=== PATIENT | male | born 1985 | race Caucasian/White ===

== ENCOUNTER 2018-08-06 10:10 | Emergency (ER) | payer OTHER ==
[~2018-08-06] VITALS: Ht 182.9 cm; Wt 79.5 kg
[2018-08-06] MEDS ORDERED: LORazepam 2 MG/ML, 1ML IVPush ONE (11:30)
[2018-08-06] MEDS ORDERED: PANTOPRAZOLE 40 MG IV IVP ONE (11:30)
[2018-08-06] MEDS ORDERED: SODIUM CHLORIDE 0.9% 1,000ML IVBOLUS ONE (11:30)
[2018-08-06 11:36] LABS: BASOPHILS # (AUTO) 0.02 x10^3/uL (0-0.1); BASOPHILS % (AUTO) 0 % (0-1); EOSINOPHILS # (AUTO) 0.02 x10^3/uL (0-0.4); EOSINOPHILS % (AUTO) 0 % (1-7); LYMPHOCYTES # (AUTO) 1.45 x10^3/uL (1-3.4); LYMPHOCYTES % (AUTO) 23 % (22-44); MD NO; MEAN CORPUSCULAR HEMOGLOBIN 31.9 pg (27.5-34.5); MEAN CORPUSCULAR HGB CONC 34.2 g/dL (33.2-36.2); MEAN CORPUSCULAR VOLUME 93.3 fL (81-97); MEAN PLATELET VOLUME 7.3 fL (7.4-10.4); MONOCYTES # (AUTO) 0.38 x10^3/uL (0.2-0.8); MONOCYTES % (AUTO) 6 % (2-9); NEUTROPHILS # (AUTO) 4.54 x10^3/uL (1.8-6.8); NEUTROPHILS % (AUTO) 71 % (42-75); PLATELET COUNT 243 x10^3/uL (130-400); RED BLOOD COUNT 5.26 x10^6/uL (4.38-5.82); RED CELL DISTRIBUTION WIDTH 13.5 % (9.4-14.8)
[2018-08-06] MEDS ORDERED: LORazepam 2 MG/ML, 1ML ONE (11:45)
[2018-08-06] MEDS ORDERED: PANTOPRAZOLE 40 MG IV ONE (11:46)
[2018-08-06 11:48] LABS: ANION GAP 18 mmol/L (5-15); CALCIUM 9.4 mg/dL (8.5-10.1); CHLORIDE 99 mmol/L (98-107)
[2018-08-06 11:51] LABS: ALANINE AMINOTRANSFERASE 144 U/L (12-78); ALKALINE PHOSPHATASE 80 U/L (45-117); BILIRUBIN,TOTAL 0.3 mg/dL (0.2-1.0); TOTAL PROTEIN 8.2 g/dL (6.4-8.2)
[2018-08-06 12:44] LABS: MICROSCOPIC AUTO
[2018-08-06 12:50] LABS: CULTURE INDICATED? NO
[2018-08-06] MEDS ORDERED: metFORMIN 500 MG TABLET PO ONE (13:00)
[2018-08-06] MEDS ORDERED: CHLORDIAZEPOXIDE 25 MG CAPSULE PO ONE (13:30)
[2018-08-06] MEDS ORDERED: CHLORDIAZEPOXIDE 25 MG CAPSULE ONE (13:37)
[2018-08-06 14:19] VITALS: BP 132/61
== END 2018-08-06 14:21 | disposition home or self-care (01) ==
LOC: ED 11:52
DX: F10.239 Alcohol dependence with withdrawal, unspecified (principal); E11.65 Type 2 diabetes mellitus with hyperglycemia
CPT/HCPCS: 36415; 80053; 81001; 82962; 83690; 85025; 96361; 96374; 96375; 99284; C9113; J2060; J7030

== ENCOUNTER 2019-01-05 05:46 | Inpatient (IN) | payer OTHER ==
[~2019-01-05] VITALS: Ht 182.9 cm; Wt 76.8 kg
[~2019-01-05 05:46] MED LIST: METF500S5 PO
[2019-01-05] MEDS ORDERED: PLEASE ENTER HEIGHT AND WEIGHT MC SCH (10:00)
[2019-01-05 10:46] LABS: ALANINE AMINOTRANSFERASE 234 U/L (12-78); ALBUMIN 3.9 g/dL (3.4-5.0); ANION GAP 15 mmol/L (5-15); CALCIUM 8.7 mg/dL (8.5-10.1); CHLORIDE 106 mmol/L (98-107); CREATININE 0.93 mg/dL (0.7-1.3)
[2019-01-05] MEDS: HYDROmorphone 2 MG/ML, 1ML IVPush PRN ×4 (10:47→21:10)
[2019-01-05] MEDS: LORazepam 2 MG/ML, 1ML IVPush PRN ×3 (10:47→19:15)
[2019-01-05] MEDS: SODIUM CHLORIDE 0.9% 1,000 ML IV SCH ×3 (10:48→21:10)
[2019-01-05 10:51] LABS: ALKALINE PHOSPHATASE 86 U/L (45-117); BILIRUBIN,TOTAL 0.9 mg/dL (0.2-1.0); CHOL/HDL RATIO 2.9; CHOLESTEROL, TOTAL 252 mg/dL (140-239); HDL CHOL % 34 % (26-37); HDL CHOLESTEROL (DIRECT) 86 mg/dL (40-60); LDL CHOLESTEROL,CALCULATED 139 mg/dL (54-169); LDL/HDL RATIO 1.6 (0.5-3.0); TOTAL PROTEIN 7.4 g/dL (6.4-8.2); TRIGLYCERIDES 134 mg/dL (50-200); VLDL CHOLESTEROL 27 mg/dL (0-25)
[2019-01-05] MEDS ORDERED: INSULIN LISPRO 100 UNITS/ML, PEN SQ-INSULIN SCH (11:00)
[2019-01-05 11:39] LABS: BASOPHILS # (AUTO) 0.02 x10^3/uL (0-0.1); BASOPHILS % (AUTO) 0 % (0-1); EOSINOPHILS % (AUTO) 0 % (1-7); LYMPHOCYTES # (AUTO) 0.65 x10^3/uL (1-3.4); LYMPHOCYTES % (AUTO) 6 % (22-44); MD NO; MEAN CORPUSCULAR HEMOGLOBIN 32.7 pg (27.5-34.5); MEAN CORPUSCULAR HGB CONC 34.3 g/dL (33.2-36.2); MEAN CORPUSCULAR VOLUME 95.6 fL (81-97); MEAN PLATELET VOLUME 7.2 fL (7.4-10.4); MONOCYTES # (AUTO) 1.21 x10^3/uL (0.2-0.8); MONOCYTES % (AUTO) 10 % (2-9); NEUTROPHILS # (AUTO) 9.92 x10^3/uL (1.8-6.8); NEUTROPHILS % (AUTO) 84 % (42-75); PLATELET COUNT 178 x10^3/uL (130-400); RED BLOOD COUNT 4.24 x10^6/uL (4.38-5.82); RED CELL DISTRIBUTION WIDTH 12.1 % (9.4-14.8)
[2019-01-05] MEDS ORDERED: ENALAPRILAT 1.25 MG/ML, 2ML IVPush PRN (12:00)
[2019-01-05] MEDS ORDERED: LABETALOL 5MG/ML, 20ML IVPush PRN (12:00)
[2019-01-05] MEDS ORDERED: POLYETHYLENE GLYCOL 17 GM PACKET PO PRN (12:00)
[2019-01-05] MEDS ORDERED: CHLORDIAZEPOXIDE 25 MG CAPSULE PO SCH (12:00)
[2019-01-05] MEDS ORDERED: DOCUSATE 100 MG CAPSULE PO PRN (12:00)
[2019-01-05] MEDS ORDERED: SODIUM PHOSPHATE 20 MMOL in SODIUM CHLORIDE 0.9% 500 ML IV ONE (12:30)
[2019-01-05] MEDS ORDERED: FLUO20CA19 PO (12:44)
[2019-01-05] MEDS ORDERED: GLIP5TAB10 PO (12:44)
[2019-01-05] MEDS: ENOXAPARIN 40 MG/0.4 ML SQ SCH (12:59)
[2019-01-05] MEDS: ONDANSETRON 2MG/ML, 2ML IVPush PRN (15:58)
[2019-01-05] MEDS: INSULIN LISPRO 100 UNITS/ML, PEN SQ-INSULIN SCH ×3 (16:20→23:12)
[2019-01-05] MEDS: CHLORDIAZEPOXIDE 25 MG CAPSULE PO SCH (19:15)
[2019-01-06] MEDS: ONDANSETRON 2MG/ML, 2ML IVPush PRN ×3 (00:33→14:01)
[2019-01-06] MEDS: HYDROmorphone 2 MG/ML, 1ML IVPush PRN ×3 (00:33→06:14)
[2019-01-06] MEDS: CHLORDIAZEPOXIDE 25 MG CAPSULE PO SCH ×4 (01:43→20:54)
[2019-01-06] MEDS: LORazepam 2 MG/ML, 1ML IVPush PRN ×3 (01:43→19:28)
[2019-01-06] MEDS: SODIUM CHLORIDE 0.9% 1,000 ML IV SCH ×3 (01:44→13:09)
[2019-01-06 04:00] VITALS: BP 148/91
[2019-01-06] MEDS: INSULIN LISPRO 100 UNITS/ML, PEN SQ-INSULIN SCH ×5 (04:27→20:53)
[2019-01-06 04:46] LABS: BASOPHILS # (AUTO) 0.04 x10^3/uL (0-0.1); BASOPHILS % (AUTO) 0 % (0-1); EOSINOPHILS # (AUTO) 0.03 x10^3/uL (0-0.4); EOSINOPHILS % (AUTO) 0 % (1-7); LYMPHOCYTES # (AUTO) 1.24 x10^3/uL (1-3.4); LYMPHOCYTES % (AUTO) 13 % (22-44); MD NO; MEAN CORPUSCULAR HEMOGLOBIN 31.7 pg (27.5-34.5); MEAN CORPUSCULAR HGB CONC 33.2 g/dL (33.2-36.2); MEAN CORPUSCULAR VOLUME 95.6 fL (81-97); MEAN PLATELET VOLUME 7.5 fL (7.4-10.4); MONOCYTES # (AUTO) 0.86 x10^3/uL (0.2-0.8); MONOCYTES % (AUTO) 9 % (2-9); NEUTROPHILS # (AUTO) 7.16 x10^3/uL (1.8-6.8); NEUTROPHILS % (AUTO) 77 % (42-75); PLATELET COUNT 134 x10^3/uL (130-400); RED BLOOD COUNT 4.05 x10^6/uL (4.38-5.82); RED CELL DISTRIBUTION WIDTH 12.1 % (9.4-14.8)
[2019-01-06 04:58] LABS: ALBUMIN 3.3 g/dL (3.4-5.0); ANION GAP 15 mmol/L (5-15); CALCIUM 7.9 mg/dL (8.5-10.1); CHLORIDE 102 mmol/L (98-107)
[2019-01-06 05:02] LABS: ALANINE AMINOTRANSFERASE 160 U/L (12-78); ALKALINE PHOSPHATASE 71 U/L (45-117); BILIRUBIN,TOTAL 0.9 mg/dL (0.2-1.0); CREATININE 0.76 mg/dL (0.7-1.3); TOTAL PROTEIN 6.3 g/dL (6.4-8.2)
[2019-01-06] MEDS ORDERED: SODIUM PHOSPHATE 20 MMOL in SODIUM CHLORIDE 0.9% 500 ML IV ONE (06:30)
[2019-01-06] MEDS: INSULIN GLARGINE 100 UNITS/ML, PEN SQ-INSULIN SCH ×2 (08:48→20:54)
[2019-01-06] MEDS: OXYcodone IR 5MG TABLET PO PRN ×4 (10:06→23:41)
[2019-01-06] MEDS: ENOXAPARIN 40 MG/0.4 ML SQ SCH (13:09)
[2019-01-06] MEDS: THIAMINE 200 MG in SODIUM CHLORIDE 0.9% 50 ML IV SCH (13:09)
[2019-01-06 14:33] VITALS: BP 144/94
[2019-01-06 19:12] VITALS: BP 143/91
[2019-01-07 01:00] VITALS: BP_SYST 145; BP_SYST 147; BP_DIAS 101; BP_DIAS 103
[2019-01-07] MEDS: SODIUM CHLORIDE 0.9% 1,000 ML IV SCH (02:29)
[2019-01-07 02:30] VITALS: BP 136/90
[2019-01-07] MEDS: LORazepam 2 MG/ML, 1ML IVPush PRN (02:33)
[2019-01-07 05:45] LABS: ANION GAP 11 mmol/L (5-15); CALCIUM 8.6 mg/dL (8.5-10.1); CHLORIDE 99 mmol/L (98-107); CREATININE 0.49 mg/dL (0.7-1.3)
[2019-01-07 07:36] VITALS: BP 135/95
[2019-01-07] MEDS: INSULIN LISPRO 100 UNITS/ML, PEN SQ-INSULIN SCH ×2 (07:46→11:57)
[2019-01-07] MEDS: INSULIN GLARGINE 100 UNITS/ML, PEN SQ-INSULIN SCH (07:46)
[2019-01-07] MEDS ORDERED: POTASSIUM CHLORIDE 20 MEQ TAB.ER.PRT PO SCH (08:00)
[2019-01-07] MEDS: CHLORDIAZEPOXIDE 25 MG CAPSULE PO SCH (09:18)
[2019-01-07] MEDS: THIAMINE 200 MG in SODIUM CHLORIDE 0.9% 50 ML IV SCH (11:56)
[2019-01-07 14:06] VITALS: BP 132/89
== END 2019-01-07 14:00 | disposition left against medical advice (07) | DRG 432 ==
LOC: CCU 09:29 → 4NOR 01-06 09:46
PROVIDERS: ADMIT Family Medicine; ATTEND Family Medicine
DX: K70.10 Alcoholic hepatitis without ascites (principal); E11.10 Type 2 diabetes mellitus with ketoacidosis without coma; K85.90 Acute pancreatitis without necrosis or infection, unspecified; F10.231 Alcohol dependence with withdrawal delirium; R65.10 Systemic inflammatory response syndrome (SIRS) of non-infectious origin without acute organ dysfunction; E83.39 Other disorders of phosphorus metabolism; I10 Essential (primary) hypertension; Z53.21 Procedure and treatment not carried out due to patient leaving prior to being seen by health care provider; F32.9 Major depressive disorder, single episode, unspecified; F41.9 Anxiety disorder, unspecified; N20.0 Calculus of kidney; Z80.6 Family history of leukemia; Z87.442 Personal history of urinary calculi; Z87.891 Personal history of nicotine dependence
CPT/HCPCS: 36415; 80048; 80053; 80061; 82962; 83605; 83690; 83735; 84100; 84443; 85025; 87081; G0378; J1170; J1650; J2405; J3411; J1815; J2060; J7030; J7040

== ENCOUNTER 2019-01-17 18:36 | Emergency (ER) | payer OTHER ==
[~2019-01-17] VITALS: Ht 182.9 cm; Wt 75.7 kg
[~2019-01-17 18:36] MED LIST changes: +FLUO20CA19 PO; +GLIP5TAB10 PO
[2019-01-17 19:24] LABS: BASOPHILS # (AUTO) 0.04 x10^3/uL (0-0.1); BASOPHILS % (AUTO) 1 % (0-1); EOSINOPHILS # (AUTO) 0.09 x10^3/uL (0-0.4); EOSINOPHILS % (AUTO) 1 % (1-7); LYMPHOCYTES # (AUTO) 2.82 x10^3/uL (1-3.4); LYMPHOCYTES % (AUTO) 34 % (22-44); MD NO; MEAN CORPUSCULAR HEMOGLOBIN 32.7 pg (27.5-34.5); MEAN CORPUSCULAR HGB CONC 34.8 g/dL (33.2-36.2); MEAN PLATELET VOLUME 7.4 fL (7.4-10.4); MONOCYTES # (AUTO) 0.49 x10^3/uL (0.2-0.8); MONOCYTES % (AUTO) 6 % (2-9); NEUTROPHILS # (AUTO) 4.97 x10^3/uL (1.8-6.8); NEUTROPHILS % (AUTO) 59 % (42-75); PLATELET COUNT 366 x10^3/uL (130-400); RED CELL DISTRIBUTION WIDTH 12.3 % (9.4-14.8)
[2019-01-17 19:26] LABS: MICROSCOPIC NOT IND
[2019-01-17 19:28] LABS: CULTURE INDICATED? NO
[2019-01-17 19:31] LABS: ALBUMIN 3.8 g/dL (3.4-5.0); ANION GAP 15 mmol/L (5-15); CALCIUM 9.3 mg/dL (8.5-10.1); CHLORIDE 100 mmol/L (98-107)
[2019-01-17 19:34] LABS: ALANINE AMINOTRANSFERASE 140 U/L (12-78); ALKALINE PHOSPHATASE 84 U/L (45-117); BILIRUBIN,TOTAL 0.3 mg/dL (0.2-1.0); CREATININE 0.63 mg/dL (0.7-1.3); TOTAL PROTEIN 7.6 g/dL (6.4-8.2)
[2019-01-17 19:52] LABS: ACETONE, SERUM Moderate(40mg/dL) mg/dL (Negative)
[2019-01-17] MEDS ORDERED: THIAMINE 100MG TABLET PO ONE (20:00)
[2019-01-17] MEDS ORDERED: ONDANSETRON ODT 4 MG PO ONE (20:00)
[2019-01-17] MEDS ORDERED: D5%-0.45% NACL 1,000 ML IV SCH (20:00)
[2019-01-17] MEDS ORDERED: THIAMINE 200 MG in SODIUM CHLORIDE 0.9% 50 ML IV ONE (20:00)
--- NOTE | 2019-01-17 20:00 | NUR ---
PT REPORTS FEELING SHAKY WILL DISCUSS MEDICATION FOR WITHDRAWL WITH
[2019-01-17] MEDS ORDERED: LORazepam 2 MG/ML, 1ML ONE (20:12)
[2019-01-17] MEDS ORDERED: ONDANSETRON ODT 4 MG ONE (20:15)
[2019-01-17 20:27] LABS: PH, VENOUS 7.361 pH (7.320-7.420)
[2019-01-17] MEDS ORDERED: LORazepam 2 MG/ML, 1ML IVPush ONE (20:30)
[2019-01-17 21:00] VITALS: BP 125/86
--- NOTE | 2019-01-17 21:37 | NUR ---
PT EATING, IVF INFUSING, WANTS TO DETOX
[2019-01-17] MEDS ORDERED: CHLORDIAZEPOXIDE 25 MG CAPSULE PO ONE (23:00)
[2019-01-17] MEDS ORDERED: CHLORDIAZEPOXIDE 25 MG CAPSULE ONE (23:01)
== END 2019-01-17 23:22 | disposition home or self-care (01) ==
LOC: ED 19:02
DX: F10.220 Alcohol dependence with intoxication, uncomplicated (principal); E87.2 Acidosis; E11.9 Type 2 diabetes mellitus without complications
CPT/HCPCS: 36415; 80053; 80307; 81003; 82010; 82803; 83690; 83735; 85025; 96365; 96375; 99283; J2060; J3411; Q0162

== ENCOUNTER 2019-05-09 19:05 | Emergency (ER) | payer OTHER ==
[~2019-05-09] VITALS: Ht 182.9 cm; Wt 86.0 kg
[2019-05-09 19:07] VITALS: BP 131/84
== END 2019-05-09 19:21 | disposition left against medical advice (07) ==
LOC: ED 19:10
DX: R10.9 Unspecified abdominal pain (principal); Z53.21 Procedure and treatment not carried out due to patient leaving prior to being seen by health care provider
CPT/HCPCS: 93005

== ENCOUNTER 2019-08-12 07:35 | Emergency (ER) | payer OTHER ==
[~2019-08-12] VITALS: Ht 182.9 cm; Wt 88.9 kg
--- NOTE | 2019-08-12 07:58 | NUR ---
PATIENT ARRIVES TO THE ER WTH THREE DAYS OF FEELING "OUT OF MY HEAD" ALMOST "LIKE MY HEAD IS SWELLING". HE IS AOX4, NOT ESPECIALLY ANXIOUS AND TALKING TO DOCTOR RELATING THAT PATIENT HAS TYPE ONE DIABETES AND STATES LATELY HE'S BEEN DIZZY AND THREW UP THIS MORNING. DENIES CHEST PAIN, DENIES ABDOMINAL PAIN. PATIENT STAES NO RECENT INJURIES. IN BED ON MONITOR.
--- NOTE | 2019-08-12 08:09 | NUR ---
ORTHOSTATICS TAKEN. 151/88 HR 88 AND 99% ON ROOM AIR SITTING. STANDING HR GOES UP TO 96, 98% RA AND BP 147/95
[2019-08-12] MEDS ORDERED: INSU100V35 INJ (08:13)
[2019-08-12] MEDS ORDERED: SODIUM CHLORIDE 0.9% 1,000ML IVBOLUS ONE (08:30)
[2019-08-12] MEDS ORDERED: SODIUM CHLORIDE FLUSH 10ML SYR IVF ONE (08:30)
[2019-08-12 08:36] LABS: BASOPHILS # (AUTO) 0.05 x10^3/uL (0-0.1); BASOPHILS % (AUTO) 1 % (0-1); EOSINOPHILS # (AUTO) 0.02 x10^3/uL (0-0.4); EOSINOPHILS % (AUTO) 0 % (1-7); LYMPHOCYTES # (AUTO) 1.39 x10^3/uL (1-3.4); LYMPHOCYTES % (AUTO) 15 % (22-44); MD NO; MEAN CORPUSCULAR HEMOGLOBIN 31.9 pg (27.5-34.5); MEAN CORPUSCULAR HGB CONC 33.2 g/dL (33.2-36.2); MEAN PLATELET VOLUME 7.3 fL (7.4-10.4); MONOCYTES # (AUTO) 0.54 x10^3/uL (0.2-0.8); MONOCYTES % (AUTO) 6 % (2-9); NEUTROPHILS % (AUTO) 78 % (42-75); PLATELET COUNT 271 x10^3/uL (130-400); RED BLOOD COUNT 4.91 x10^6/uL (4.38-5.82); RED CELL DISTRIBUTION WIDTH 12.2 % (9.4-14.8)
--- NOTE | 2019-08-12 08:46 | NUR ---
patient back from ct scan. getting fluids, on monitor
[2019-08-12 08:49] LABS: ALANINE AMINOTRANSFERASE 44 U/L (12-78); ALBUMIN 3.8 g/dL (3.4-5.0); ANION GAP 6 mmol/L (5-15); CALCIUM 9.1 mg/dL (8.5-10.1); CHLORIDE 106 mmol/L (98-107); CREATININE 0.91 mg/dL (0.7-1.3)
[2019-08-12 08:50] LABS: ALKALINE PHOSPHATASE 86 U/L (45-117); BILIRUBIN,TOTAL 0.6 mg/dL (0.2-1.0); TOTAL PROTEIN 7.4 g/dL (6.4-8.2)
[2019-08-12 09:37] VITALS: BP 125/66
--- NOTE | 2019-08-12 09:38 | NUR ---
discharge instructions reviewed. shows understanding.
[2019-08-12 09:56] LABS: ACETONE, SERUM Negative (Negative)
[2019-08-12 14:22] LABS: HEMOGLOBIN A1C 7.3 % (4.2-6.3)
== END 2019-08-12 09:40 | disposition home or self-care (01) ==
LOC: ED 08:24
DX: E86.0 Dehydration (principal); I10 Essential (primary) hypertension; R42 Dizziness and giddiness; R11.10 Vomiting, unspecified; R51 Headache
CPT/HCPCS: 70450; 80053; 82010; 82800; 82962; 83036; 83735; 85025; 93005; 96360; 99284; J7030

== ENCOUNTER 2019-08-25 21:55 | Emergency (ER) | payer OTHER ==
[~2019-08-25] VITALS: Ht 182.9 cm; Wt 85.7 kg
[~2019-08-25 21:55] MED LIST changes: +INSU100V35 INJ
[2019-08-25 21:59] VITALS: BP 137/88
--- NOTE | 2019-08-25 23:45 | NUR ---
not in lobby
--- NOTE | 2019-08-25 23:45 | NUR ---
pt to room from lobby
== END 2019-08-25 23:59 | disposition left against medical advice (07) ==
LOC: ED 23:53
DX: R11.10 Vomiting, unspecified (principal); R51 Headache; R05 Cough; Z53.21 Procedure and treatment not carried out due to patient leaving prior to being seen by health care provider

== ENCOUNTER 2019-12-20 16:31 | Emergency (ER) | payer OTHER ==
[~2019-12-20] VITALS: Ht 182.9 cm; Wt 76.2 kg
--- NOTE | 2019-12-20 17:12 | NUR ---
patient is a diabetic and states an alcoholic who arrives with one week of runny nose, fever and congestion. 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 patient states he has been drinking heavier recently and feels he could go into withdrawals according to him in an hour and a half; states he has been throught with drawals before.
[2019-12-20 17:20] LABS: BASOPHILS # (AUTO) 0.02 x10^3/uL (0-0.1); BASOPHILS % (AUTO) 0 % (0-1); EOSINOPHILS # (AUTO) 0.04 x10^3/uL (0-0.4); EOSINOPHILS % (AUTO) 0 % (1-7); LYMPHOCYTES # (AUTO) 1.74 x10^3/uL (1-3.4); LYMPHOCYTES % (AUTO) 20 % (22-44); MD NO; MEAN CORPUSCULAR HEMOGLOBIN 31.8 pg (27.5-34.5); MEAN CORPUSCULAR VOLUME 93.7 fL (81-97); MEAN PLATELET VOLUME 7.7 fL (7.4-10.4); MONOCYTES # (AUTO) 0.58 x10^3/uL (0.2-0.8); MONOCYTES % (AUTO) 7 % (2-9); NEUTROPHILS # (AUTO) 6.36 x10^3/uL (1.8-6.8); NEUTROPHILS % (AUTO) 73 % (42-75); PLATELET COUNT 230 x10^3/uL (130-400); RED BLOOD COUNT 5.19 x10^6/uL (4.38-5.82); RED CELL DISTRIBUTION WIDTH 13.8 % (9.4-14.8)
[2019-12-20 17:21] LABS: PH, VENOUS 7.421 pH (7.320-7.420)
[2019-12-20] MEDS ORDERED: CHLORDIAZEPOXIDE 25 MG CAPSULE PO PRN (17:30)
[2019-12-20 17:33] LABS: ALANINE AMINOTRANSFERASE 66 U/L (12-78); ALBUMIN 4.2 g/dL (3.4-5.0); ANION GAP 11 mmol/L (5-15); CALCIUM 9.6 mg/dL (8.5-10.1); CHLORIDE 102 mmol/L (98-107); CREATININE 0.79 mg/dL (0.7-1.3)
[2019-12-20 17:35] LABS: ALKALINE PHOSPHATASE 67 U/L (45-117); BILIRUBIN,TOTAL 0.7 mg/dL (0.2-1.0); TOTAL PROTEIN 8.2 g/dL (6.4-8.2)
[2019-12-20 17:41] LABS: ACETONE, SERUM Negative (Negative)
[2019-12-20 19:00] VITALS: BP 122/78
--- NOTE | 2019-12-20 19:01 | NUR ---
reviewed discharge including covid isolation precautions
== END 2019-12-20 19:02 | disposition home or self-care (01) ==
LOC: ED 17:21
DX: J00 Acute nasopharyngitis [common cold] (principal); Z20.828 Contact with and (suspected) exposure to other viral communicable diseases; B97.89 Other viral agents as the cause of diseases classified elsewhere; E10.9 Type 1 diabetes mellitus without complications; F10.239 Alcohol dependence with withdrawal, unspecified; Y90.9 Presence of alcohol in blood, level not specified
CPT/HCPCS: 36415; 71045; 80053; 82010; 82803; 83690; 85025; 99284

== ENCOUNTER 2020-01-11 21:44 | Emergency (ER) | payer OTHER ==
[~2020-01-11] VITALS: Ht 182.9 cm; Wt 79.4 kg
[2020-01-11 21:47] VITALS: BP 159/98
--- NOTE | 2020-01-11 21:52 | NUR ---
FSBS IN TRIAGE: 100
--- NOTE | 2020-01-11 22:17 | NUR ---
URINE SAMPLE COLLECTED AND SENT. PT DRESSED IN GOWN, ATTACHED TO MONITORS. ERP AT BEDSIDE FOR ASSESSMENT. CALL LIGHT IN REACH.
[2020-01-11 22:30] LABS: MICROSCOPIC NOT IND
[2020-01-11] MEDS ORDERED: MORPHINE SULFATE 4 MG/ML, 1ML IVPush PRN (22:30)
[2020-01-11] MEDS ORDERED: ONDANSETRON 2MG/ML, 2ML IVPush ONE (22:30)
[2020-01-11] MEDS ORDERED: SODIUM CHLORIDE 0.9% 1,000ML IVBOLUS ONE (22:30)
[2020-01-11] MEDS ORDERED: MORPHINE SULFATE 4 MG/ML, 1ML ONE (22:32)
[2020-01-11] MEDS ORDERED: ONDANSETRON 2MG/ML, 2ML ONE (22:32)
[2020-01-11 22:36] LABS: CULTURE INDICATED? NO
--- NOTE | 2020-01-11 22:42 | NUR ---
IV STARTED, LABS DRAWN AND SENT. MEDICATED PER MAR. ULTRASOUND AT BEDSIDE AT THIS TIME. PT DENIES ANY CURRENT NEEDS OR CONCERNS. CALL LIGHT IN REACH.
[2020-01-11 22:57] LABS: BASOPHILS # (AUTO) 0.05 x10^3/uL (0-0.1); BASOPHILS % (AUTO) 0 % (0-1); EOSINOPHILS # (AUTO) 0.16 x10^3/uL (0-0.4); EOSINOPHILS % (AUTO) 1 % (1-7); LYMPHOCYTES # (AUTO) 1.38 x10^3/uL (1-3.4); LYMPHOCYTES % (AUTO) 11 % (22-44); MD NO; MEAN CORPUSCULAR HEMOGLOBIN 32.1 pg (27.5-34.5); MEAN CORPUSCULAR HGB CONC 33.8 g/dL (33.2-36.2); MEAN CORPUSCULAR VOLUME 94.8 fL (81-97); MEAN PLATELET VOLUME 8.1 fL (7.4-10.4); MONOCYTES # (AUTO) 1.09 x10^3/uL (0.2-0.8); MONOCYTES % (AUTO) 8 % (2-9); NEUTROPHILS # (AUTO) 10.43 x10^3/uL (1.8-6.8); NEUTROPHILS % (AUTO) 80 % (42-75); PLATELET COUNT 280 x10^3/uL (130-400); RED BLOOD COUNT 4.74 x10^6/uL (4.38-5.82); RED CELL DISTRIBUTION WIDTH 13.5 % (9.4-14.8)
[2020-01-11 23:03] LABS: ALANINE AMINOTRANSFERASE 44 U/L (12-78); ALBUMIN 3.5 g/dL (3.4-5.0); ANION GAP 10 mmol/L (5-15); CALCIUM 9.5 mg/dL (8.5-10.1); CHLORIDE 104 mmol/L (98-107); CREATININE 0.83 mg/dL (0.7-1.3)
[2020-01-11 23:05] LABS: ALKALINE PHOSPHATASE 55 U/L (45-117); BILIRUBIN,TOTAL 0.4 mg/dL (0.2-1.0); TOTAL PROTEIN 6.9 g/dL (6.4-8.2)
[2020-01-11] MEDS ORDERED: HYDROmorphone 1 MG/ML, 1ML INJ IVPush PRN (23:30)
[2020-01-11] MEDS ORDERED: HYDROmorphone 1 MG/ML, 1ML INJ ONE (23:36)
--- NOTE | 2020-01-11 23:48 | NUR ---
PT TO CT AT THIS TIME.
[2020-01-11] MEDS ORDERED: OMNIPAQUE 350 MG/ML, 100ML BOTTLE ONE (23:54)
== END 2020-01-12 01:04 | disposition home or self-care (01) ==
LOC: ED 23:42
DX: A08.4 Viral intestinal infection, unspecified (principal); M54.5 Low back pain; E11.649 Type 2 diabetes mellitus with hypoglycemia without coma; I10 Essential (primary) hypertension
CPT/HCPCS: 74177; 76700; 80053; 81003; 82962; 83690; 85025; 96361; 96374; 96375; 99285; J1170; J2270; J2405; J7030; Q9967

== ENCOUNTER 2020-03-06 14:40 | Emergency (ER) | payer OTHER ==
[~2020-03-06] VITALS: Ht 182.9 cm; Wt 78.7 kg
[2020-03-06 14:59] VITALS: BP 147/96
[2020-03-06 15:20] LABS: BASOPHILS # (AUTO) 0.05 x10^3/uL (0-0.1); BASOPHILS % (AUTO) 1 % (0-1); EOSINOPHILS # (AUTO) 0.01 x10^3/uL (0-0.4); EOSINOPHILS % (AUTO) 0 % (1-7); LYMPHOCYTES # (AUTO) 2.03 x10^3/uL (1-3.4); LYMPHOCYTES % (AUTO) 25 % (22-44); MD NO; MEAN CORPUSCULAR HEMOGLOBIN 31.5 pg (27.5-34.5); MEAN CORPUSCULAR HGB CONC 32.9 g/dL (33.2-36.2); MEAN CORPUSCULAR VOLUME 95.6 fL (81-97); MONOCYTES # (AUTO) 0.66 x10^3/uL (0.2-0.8); MONOCYTES % (AUTO) 8 % (2-9); NEUTROPHILS # (AUTO) 5.26 x10^3/uL (1.8-6.8); NEUTROPHILS % (AUTO) 66 % (42-75); PLATELET COUNT 293 x10^3/uL (130-400); RED CELL DISTRIBUTION WIDTH 12.6 % (9.4-14.8)
[2020-03-06 15:25] LABS: ANION GAP 9 mmol/L (5-15); CHLORIDE 99 mmol/L (98-107); CREATININE 0.87 mg/dL (0.7-1.3)
== END 2020-03-06 15:41 | disposition home or self-care (01) ==
LOC: ED 15:40
DX: F10.129 Alcohol abuse with intoxication, unspecified (principal); E10.65 Type 1 diabetes mellitus with hyperglycemia; Y90.9 Presence of alcohol in blood, level not specified
CPT/HCPCS: 36415; 80048; 80307; 83735; 85025; 99283

== ENCOUNTER 2020-07-27 07:42 | Emergency (ER) | payer OTHER ==
[~2020-07-27] VITALS: Ht 182.9 cm; Wt 84.4 kg
[2020-07-27 07:44] VITALS: BP 146/99
[2020-07-27] MEDS ORDERED: THIAMINE 100MG TABLET PO ONE (08:30)
[2020-07-27] MEDS ORDERED: THIAMINE 100MG TABLET ONE (08:46)
--- NOTE | 2020-07-27 08:50 | NUR ---
PT HERE FOR HELP FOR DETOX FROM ETOH, PT AOX4, NON TREMULOUS, DENIES N/V, JENNINGS. PT STATES LAST DRINK APPROX 0730, HAS HAD "VELASQUEZ BEEN DRINKING ALL MORNING" PT WITH STEADY GAIT. ERMD IN TO EVAL PT, PT WISHES TO BE PRESCRIBED BENZO TO HELP WITH DT'S. ERMD ORDERED THIAMINE PT WISHED TO BE EVAL'D AT ANOTHER HOSPITAL, TO BE DC
== END 2020-07-27 09:30 | disposition home or self-care (01) ==
LOC: ED 08:49
DX: F10.10 Alcohol abuse, uncomplicated (principal); E11.65 Type 2 diabetes mellitus with hyperglycemia; Y90.9 Presence of alcohol in blood, level not specified
CPT/HCPCS: 99283